=== PATIENT | female | born 1995 | race Caucasian/White ===

== ENCOUNTER 2025-03-15 23:19 | Inpatient (IN) | payer BC ==
[~2025-03-15] VITALS: Ht 165.1 cm; Wt 132.6 kg
[2025-03-15] MEDS ORDERED: BUDE10.2 IH (23:42)
[2025-03-15] MEDS ORDERED: LAMO150T2 PO (23:42)
[2025-03-15] MEDS ORDERED: GABA300C PO (23:42)
[2025-03-15] MEDS ORDERED: ALBU18HF2 IH (23:42)
[2025-03-15] MEDS ORDERED: QUET100T PO (23:42)
[2025-03-15] MEDS ORDERED: GUAIFENESIN SUGAR FREE 100 MG/5 ML UDC ONE (23:59)
[2025-03-16] VITALS (17 sets, daily range): BP systolic 113–146; BP diastolic 63–106; TEMP 97.7–98.2; O2SAT 94–100
[2025-03-16 00:06] LABS: PLATELET COUNT (AUTO) 269 K/uL (179-408); RED BLOOD CELL COUNT(AUTO) 4.48 MIL/uL (3.63-4.92); RED CELL DISTRIBUTION WIDTH 19.7 % (12.3-17.7); WHITE BLOOD COUNT (AUTO) 8.2 K/uL (3.8-11.8)
[2025-03-16] MEDS: IPRATROPIUM BROMIDE 0.5 MG/2.5 ML NEBU NEB ONE (00:06)
[2025-03-16] MEDS: ALBUTEROL SULFATE 2.5 MG/3 ML NEBU NEB ONE ×2 (00:06→02:15)
[2025-03-16] MEDS ORDERED: ALBUTEROL SULFATE 2.5 MG/3 ML NEBU ONE ×2 (00:08→02:17)
[2025-03-16] MEDS ORDERED: IPRATROPIUM BROMIDE 0.5 MG/2.5 ML NEBU ONE (00:08)
[2025-03-16 00:14] LABS: CREATININE 1.2 mg/dL (0.6-1.3); SODIUM SERUM 140 mmol/L (136-145); UREA NITROGEN, BLOOD 7 mg/dL (7-18)
[2025-03-16 00:20] LABS: ASPARTATE AMINOTRANSFERASE 20 U/L (15-37); TOTAL PROTEIN, SERUM 7.3 g/dL (6.4-8.2)
[2025-03-16] MEDS: GUAIFENESIN SUGAR FREE 100 MG/5 ML UDC PO ONE (00:21)
[2025-03-16] MEDS ORDERED: SWABABLE VALVE TRANSFER SET EA MC ONE (01:14)
[2025-03-16] MEDS ORDERED: IV NORMAL SALINE 250 ML IV ONE (01:14)
[2025-03-16] MEDS ORDERED: IOHEXOL 350 100 ML INFUS..BTL ONE (01:14)
[2025-03-16] MEDS ORDERED: ALBUTEROL SULFATE 2.5 MG/3 ML NEBU NEB PRN (03:00)
[2025-03-16] MEDS ORDERED: ONDANSETRON 4 MG/2 ML VIAL IV PRN (03:00)
[2025-03-16] MEDS ORDERED: ACETAMINOPHEN 325 MG TABLET PO PRN (03:00)
[2025-03-16] MEDS ORDERED: IPRATROPIUM BROMIDE 0.5 MG/2.5 ML NEBU NEB PRN (03:00)
[2025-03-16] MEDS ORDERED: REMEDY ESSENTIAL ZINC PASTE 113 GM TP PRN (03:00)
[2025-03-16] MEDS ORDERED: HYDROCODONE/APAP 5-325MG TABLET PO PRN (03:00)
[2025-03-16] MEDS ORDERED: MAGNESIUM HYDROXIDE 30 ML LIQUID UDC PO PRN (03:00)
[2025-03-16] MEDS ORDERED: HOME MED MISCELLANEOUS XX SCH (03:15)
[2025-03-16] MEDS: PANTOPRAZOLE SODIUM 40 MG TABLET.DR PO SCH (06:15)
[2025-03-16] MEDS: MOMETASONE/FORMOTEROL 8.8 GM HFA.AER.AD IH SCH (08:56)
[2025-03-16] MEDS: GABAPENTIN 400 MG CAPSULE PO SCH (08:57)
[2025-03-16] MEDS ORDERED: GABAPENTIN 300 MG CAPSULE PO SCH (09:00)
[2025-03-16] MEDS: IPRATROPIUM BROMIDE 0.5 MG/2.5 ML NEBU NEB SCH (11:53)
[2025-03-16] MEDS: ALBUTEROL SULFATE 2.5 MG/3 ML NEBU NEB SCH (11:54)
[2025-03-16] MEDS ORDERED: REMEDY ESSENTIAL ZINC PASTE 113 GM TOP PRN (16:00)
[2025-03-16] MEDS: MONTELUKAST SODIUM 10 MG TABLET PO SCH (17:50)
[2025-03-16] MEDS: QUETIAPINE FUMARATE 100 MG TABLET PO SCH (20:12)
[2025-03-16] MEDS ORDERED: QUETIAPINE FUMARATE 100 MG TABLET PO SCH (21:00)
[2025-03-17] VITALS (11 sets, daily range): BP systolic 108–149; BP diastolic 78–92; TEMP 97.7–98.1; O2SAT 97–100
[2025-03-17 05:15] LABS: PLATELET COUNT (AUTO) 249 K/uL (179-408); RED BLOOD CELL COUNT(AUTO) 4.36 MIL/uL (3.63-4.92); RED CELL DISTRIBUTION WIDTH 20.6 % (12.3-17.7); WHITE BLOOD COUNT (AUTO) 8.7 K/uL (3.8-11.8)
[2025-03-17 05:26] LABS: CREATININE 0.7 mg/dL (0.6-1.3); SODIUM SERUM 141.0 mmol/L (136-145); UREA NITROGEN, BLOOD 15.0 mg/dL (7-18)
[2025-03-17] MEDS ORDERED: MONT-41 PO (11:36)
[2025-03-17] MEDS ORDERED: METH4TAB3 PO (11:36)
== END 2025-03-17 17:45 | disposition other institution (70) | DRG 202 ==
LOC: ER 23:38 → TELE3 03-16 02:58
PROVIDERS: ADMIT Nurse Practitioner Acute Care; ATTEND Nurse Practitioner Acute Care
DX: J45.901 Unspecified asthma with (acute) exacerbation (principal); D68.59 Other primary thrombophilia; E44.1 Mild protein-calorie malnutrition; E88.09 Other disorders of plasma-protein metabolism, not elsewhere classified; Z68.42 Body mass index [BMI] 45.0-49.9, adult; F11.11 Opioid abuse, in remission; I10 Essential (primary) hypertension; E66.01 Morbid (severe) obesity due to excess calories; F17.210 Nicotine dependence, cigarettes, uncomplicated; Z91.09 Other allergy status, other than to drugs and biological substances; G47.33 Obstructive sleep apnea (adult) (pediatric); F98.8 Other specified behavioral and emotional disorders with onset usually occurring in childhood and adolescence; F43.10 Post-traumatic stress disorder, unspecified; K44.9 Diaphragmatic hernia without obstruction or gangrene; Z79.51 Long term (current) use of inhaled steroids; M79.604 Pain in right leg; Z86.19 Personal history of other infectious and parasitic diseases
CPT/HCPCS: 36415; 71045; 71275; 83735; 84100; 85025; 94640; 94760; A4663; G0378; J3590; J7512; Q9967